=== PATIENT | female | born 1995 | race Hispanic/Latino ===

== ENCOUNTER 2020-04-30 16:49 | Emergency (ER) | payer OTHER ==
[2020-05-01 12:56] LABS: SARS-CoV-2 MS2 Positive; SARS-CoV-2 N Gene Positive; SARS-CoV-2 S Gene Positive; SARS-CoV-2 orf1ab Positive
== END 2020-04-30 17:22 | disposition home or self-care (01) ==
LOC: ERS 16:49
DX: U07.1 COVID-19 (principal); R05 Cough
CPT/HCPCS: 87635; 99283; U0003